=== PATIENT | male | born 1960 | race Caucasian/White ===

== ENCOUNTER → 2018-06-08 | Outpatient (CLI) | payer BC ==
--- NOTE | 2018-06-09 07:14 | MR ---
EXAMINATION TYPE: MR foot RT wo con DATE OF EXAM: 06/08/2018 COMPARISON: None HISTORY: Rt foot pain, mid foot lateral aspect x several months, no trauma Standard multiplanar, multisequence MRI departmental protocol Multiplanar, multisequence images of the right foot were acquired. FINDINGS: There is some mild soft tissue edema involving the dorsal aspect of the fourth and fifth me tatarsals. There is no evidence of a discrete mass. I see no fracture. There is no evidence of bone e harvinder. I see no bony destructive process. Flexor medial and lateral tendons of the foot appear intact. Ankle mortise is anatomic. The collateral ligaments are intact at the ankle. Plantar fascia appears normal. IMPRESSION: There is mild soft tissue edema on the lateral aspect of the forefoot of uncertain significance. No f racture seen. No significant joint fluid.
== END | disposition home or self-care (01) ==
LOC: RADMRIMAIN 19:53
PROVIDERS: ATTEND Physical Medicine & Rehabilitation
DX: M79.89 Other specified soft tissue disorders (principal); M79.671 Pain in right foot; G57.81 Other specified mononeuropathies of right lower limb

== ENCOUNTER 2019-10-07 18:57 | Emergency (ER) | payer BC ==
[2019-10-07 19:10] VITALS: BP 169/89; PULSE 72; RESP 18; TEMP 98.3
[2019-10-07] MEDS ORDERED: KETOROLAC 60 MG/2 ML VIAL IM STA (19:20)
--- NOTE | 2019-10-07 19:55 | ED ---
Fall HPI - General Chief Complaint: Fall Stated Complaint: Rib injury Time Seen by Provider: 10/07/19 19:15 Source: patient Mode of arrival: ambulatory - History of Present Illness Initial Comments: Patient is a 59-year-old male presenting to the emergency department after a fall. Patient states approximately noon today he was on a two-step, small stool when he fell off landing on his left side. Patient states his left arm was underneath his ribs and his main complaint is left-sided rib pain. Patient states he did not hit his head, no LOC. Patient states he was doing fine since the fall until a few hours ago when he sneezed and he is having significant pain in the left side of the ribs. He states increased pain with deep breathing. He denies any extremity injuries. He has no other complaints from the fall. - Related Data Allergies Allergy/AdvReac Type Severity Reaction Status Date / Time No Known Allergies Allergy Verified 10/07/19 19:10 Review of Systems ROS Statement: Those systems with pertinent positive or pertinent negative responses have been documented in the HPI. ROS Other: All systems not noted in ROS Statement are negative. Past Medical History Past Medical History: Hypertension History of Any Multi-Drug Resistant Organisms: None Reported Past Surgical History: Back Surgery, Joint Replacement Additional Past Surgical History / Comment(s): shoulder Past Psychological History: No Psychological Hx Reported Smoking Status: Former smoker Past Alcohol Use History: None Reported Past Drug Use History: Marijuana General Exam - General Exam Comments Initial Comments: GENERAL: Well-appearing, well-nourished and in no acute distress. HEAD: Atraumatic, normocephalic. EYES: Pupils equal round and reactive to light, extraocular movements intact, sclera anicteric, conjunctiva are normal. ENT: TMs normal, nares patent, oropharynx clear without exudates. Moist mucous membranes. NECK: Normal range of motion, supple without lymphadenopathy or JVD. LUNGS: Breath sounds clear to auscultation bilaterally and equal. No wheezes rales or rhonchi. Tender to palpation of the lateral aspect of the left side of ribs. No bruising seen. HEART: Regular rate and rhythm without murmurs, rubs or gallops. ABDOMEN: Soft, nontender, normoactive bowel sounds. No guarding, no rebound. No masses appreciated. : Deferred EXTREMITIES: Normal range of motion, no pitting or edema. No clubbing or cyanosis. NEUROLOGICAL: Cranial nerves II through XII grossly intact. Normal speech, normal gait. PSYCH: Normal mood, normal affect. SKIN: Warm, Dry, normal turgor, no rashes or lesions noted. Limitations: no limitations Course Vital Signs 10/07/19 19:07 Temperature 98.3 F Pulse Rate 72 Respiratory 18 Rate Blood Pressure 169/89 O2 Sat by Pulse 95 Oximetry Medical Decision Making - Medical Decision Making Patient 59-year-old male here for left-sided rib pain after falling off a small step stool ladder. He did not hit his head, no LOC. No other complaints of injuries from this fall other than the left-sided rib pain. X-rays reveal A mildly displaced left lateral sixth rib fracture. I discussed these findings with the patient. Patient was given Toradol as well as a tile 3 starter pack. I did offer patient lidocaine patches to wear however he declined these. Patient was given an incentive spirometer to use. Patient is stable for discharge. Return parameters were discussed with the patient and he verbalized understanding. Case discussed with Dr. Solano. Disposition Clinical Impression: Fall, Left rib fracture Disposition: HOME SELF-CARE Condition: Stable Instructions (If sedation given, give patient instructions): Rib Fracture (ED) Additional Instructions: Please return to the Emergency Department if symptoms worsen or any other concerns. Apply pressure using a pillow to the left ribs when having to bear down, cough, sneeze. Use an incentive spirometer as directed. Continue with Tylenol or Motrin for discomfort. Follow-up with PCP. Is patient prescribed a controlled substance at d/c from ED?: No Referrals: Shoaib Lan DO [Primary Care Provider] - 1-2 days
--- NOTE | 2019-10-07 20:02 | XR ---
PROCEDURE: XR ribs LT w pa chest xray - 3V DATE AND TIME: 10/07/2019 7:38 PM CLINICAL INDICATION: PHH; fall, pain TECHNIQUE: Department protocol COMPARISON: 05/16/2013 PA and lateral chest radiographs FINDINGS: LUNGS: There is a 9 cm transverse by 4.5 cm longitudinal ill-defined added opacity at the left lung b ase, with radiographic differential including basilar atelectasis/contusion, or pneumonia in the prop er clinical setting. PLEURAL SPACES: There is no pneumothorax or other abnormal gas collection. There is evidence of a subpulmonic left pleural effusion. SOFT TISSUES: The cardiac silhouette is mildly enlarged. The interface of the left hemidiaphragm with the left lower lung parenchyma is silhouetted. SKELETAL STRUCTURES: There is a mildl- displaced left sixth rib fracture. There is remodeling of the left eighth and ninth ribs posteriorly at the mid clavicular line, and the left T9 and T10 ribs later ally. Most of these are seen on the 05/16/2013 chest radiograph, consistent with remote injury. IMPRESSION: 1. Mildly displaced left lateral sixth rib fracture. 2. Lung base added opacity as discussed. 3. Left pleural effusion which appears subpulmonic. 4. Multifocal remodeled left ribs, consistent with remote injury.
[2019-10-07] MEDS ORDERED: ACET/COD 300 MG/30 MG STARTER PACK 6 TAB BTL PO STA (20:32)
== END 2019-10-07 20:53 | disposition home or self-care (01) ==
LOC: EC 18:57
DX: S22.32XA Fracture of one rib, left side, initial encounter for closed fracture (principal); Z87.891 Personal history of nicotine dependence; W19.XXXA Unspecified fall, initial encounter
CPT/HCPCS: 71101; 99283; 96372; J1885

== ENCOUNTER 2019-10-14 13:03 | Inpatient (IN) | payer BC ==
--- NOTE | 2019-10-14 13:33 | ED ---
General Adult HPI - General Chief complaint: Abdominal Pain Stated complaint: abdominal issues Time Seen by Provider: 10/14/19 13:05 Source: patient, RN notes reviewed, old records reviewed Mode of arrival: ambulatory Limitations: no limitations - History of Present Illness Initial comments: And the sensation that he was bloated. Patient states he has noticed she's been burping a lot more as well. Patient states she's had no nausea vomiting or diarrhea. Patient states he has not been constipated. Patient states he took approximate 7 pound with codeine since then hasn't taken any in a few days. Patient denies any fever chills per patient denies any new trauma. Patient denies any bruising or swelling in the left upper quadrant. Patient denies any chest pain difficult breathing shortness of breath. Patient denies any back pain. - Related Data Allergies Allergy/AdvReac Type Severity Reaction Status Date / Time No Known Allergies Allergy Verified 10/14/19 13:12 Review of Systems ROS Statement: Those systems with pertinent positive or pertinent negative responses have been documented in the HPI. ROS Other: All systems not noted in ROS Statement are negative. Past Medical History Past Medical History: Hypertension History of Any Multi-Drug Resistant Organisms: None Reported Past Surgical History: Back Surgery, Joint Replacement Additional Past Surgical History / Comment(s): shoulder Past Psychological History: No Psychological Hx Reported Smoking Status: Former smoker Past Alcohol Use History: None Reported Past Drug Use History: Marijuana General Exam - General Exam Comments Initial Comments: GENERAL: Patient is well-developed and well-nourished. Patient is nontoxic and well- hydrated and is in mild distress. ENT: Neck is soft and supple. No significant lymphadenopathy is noted. Oropharynx is clear. Moist mucous membranes. Neck has full range of motion without eliciting any pain. EYES: The sclera were anicteric and conjunctiva were pink and moist. Extraocular movements were intact and pupils were equal round and reactive to light. Eyelids were unremarkable. PULMONARY: Unlabored respirations. Good breath sounds bilaterally. No audible rales rhonchi or wheezing was noted. CARDIOVASCULAR: There is a regular rate and rhythm without any murmurs gallops or rubs. ABDOMEN: Patient has pain in the left upper quadrant is mild is no rebound SKIN: Skin is clear with no lesions or rashes and otherwise unremarkable. NEUROLOGIC: Patient is alert and oriented x3. Cranial nerves II through XII are grossly i ntact. Motor and sensory are also intact. Normal speech, volume and content. Symmetrical smile. MUSCULOSKELETAL: Normal extremities with adequate strength and full range of motion. No lower extremity swelling or edema. No calf tenderness. LYMPHATICS: No significant lymphadenopathy is noted PSYCHIATRIC: Normal psychiatric evaluation. Limitations: no limitations Course Vital Signs 10/14/19 13:10 Temperature 98.4 F Pulse Rate 91 Respiratory 16 Rate Blood Pressure 145/91 O2 Sat by Pulse 99 Oximetry Medical Decision Making - Medical Decision Making CT of the abdomen shows a large pleural effusion on the left side of his chest. Also social little bit of fluid in the pelvis but no source. Chest x-ray shows a large pleural effusion. I spoke with some physicians agreed to admit the patient admitted the patient wrote admitting orders. - Lab Data Result diagrams: 10/14/19 14:06 10/14/19 14:06 Lab Results 10/14/19 10/14/19 10/14/19 Range/Units 14:06 14:06 15:51 WBC 11.3 H (3.8-10.6) k/uL RBC 3.20 L (4.30-5.90) m/uL Hgb 10.6 L (13.0-17.5) gm/dL Hct 31.8 L (39.0-53.0) % MCV 99.4 (80.0-100.0) fL MCH 33.2 (25.0-35.0) pg MCHC 33.4 (31.0-37.0) g/dL RDW 13.0 (11.5-15.5) % Plt Count 733 H (150-450) k/uL Neutrophils % 72 % Lymphocytes % 18 % Monocytes % 5 % Eosinophils % 3 % Basophils % 0 % Neutrophils # 8.2 H (1.3-7.7) k/uL Lymphocytes # 2.0 (1.0-4.8) k/uL Monocytes # 0.6 (0-1.0) k/uL Eosinophils # 0.3 (0-0.7) k/uL Basophils # 0.0 (0-0.2) k/uL PT 10.5 (9.0-12.0) sec INR 1.0 (<1.2) APTT 26.3 (22.0-30.0) sec Sodium 133 L (137-145) mmol/L Potassium 4.7 (3.5-5.1) mmol/L Chloride 98 (98-107) mmol/L Carbon Dioxide 25 (22-30) mmol/L Anion Gap 10 mmol/L BUN 11 (9-20) mg/dL Creatinine 0.69 (0.66-1.25) mg/dL Est GFR (CKD-EPI)AfAm >90 (>60 ml/min/1.73 sqM) Est GFR (CKD-EPI)NonAf >90 (>60 ml/min/1.73 sqM) Glucose 99 (74-99) mg/dL Calcium 9.2 (8.4-10.2) mg/dL Total Bilirubin 1.4 H (0.2-1.3) mg/dL AST 27 (17-59) U/L ALT 19 (4-49) U/L Alkaline Phosphatase 58 (38-126) U/L Total Protein 6.9 (6.3-8.2) g/dL Albumin 4.2 (3.5-5.0) g/dL Disposition Clinical Impression: Pleural effusion, left, Rib fractures Disposition: ADMITTED IP TO THIS HOSP Referrals: Shoaib Lan DO [Primary Care Provider] - 1-2 days Time of Disposition: 16:25
[2019-10-14 14:32] LABS: Basophils % (A) 0 %; Eosinophils # (A) 0.3 k/uL (0-0.7); Eosinophils % (A) 3 %; HCT 31.8 % (39.0-53.0); HGB 10.6 gm/dL (13.0-17.5); Lymphocytes % (A) 18 %; MCH 33.2 pg (25.0-35.0); MCHC 33.4 g/dL (31.0-37.0); MCV 99.4 fL (80.0-100.0); Mean Platelet Volume 7.6; Monocytes # (A) 0.6 k/uL (0-1.0); Monocytes % (A) 5 %; Neutrophils # (A) 8.2 k/uL (1.3-7.7); Neutrophils % (A) 72 %; Platelet Count 733 k/uL (150-450); WBC 11.3 k/uL (3.8-10.6)
[2019-10-14 14:39] LABS: ALT 19 U/L (4-49); AST 27 U/L (17-59); African American GFR (CKD) >90 (>60 ml/min/1.73 sqM); Albumin 4.2 g/dL (3.5-5.0); Alkaline Phosphatase 58 U/L (38-126); Anion Gap 10 mmol/L; Blood Urea Nitrogen 11 mg/dL (9-20); Calcium 9.2 mg/dL (8.4-10.2); Carbon Dioxide 25 mmol/L (22-30); Chloride 98 mmol/L (98-107); Glucose 99 mg/dL (74-99); Non-African American GFR(CKD) >90 (>60 ml/min/1.73 sqM); Potassium 4.7 mmol/L (3.5-5.1); Sodium 133 mmol/L (137-145); Total Bilirubin 1.4 mg/dL (0.2-1.3); Total Protein 6.9 g/dL (6.3-8.2)
--- NOTE | 2019-10-14 15:40 | CT ---
EXAMINATION TYPE: CT abdomen pelvis w con DATE OF EXAM: 10/14/2019 COMPARISON: NONE HISTORY: 59-year-old male Left rib fracture one week ago. Left sided abdominal pain and gas today. TECHNIQUE: Contiguous axial scanning of the abdomen and pelvis following administration of 100 ml Iso reena 300 IV contrast. Delayed images through the kidneys and coronal/sagittal reconstructions perform ed. CT DLP: 1123.7 mGycm Automated exposure control for dose reduction was used. FINDINGS: Heart normal size without pericardial effusion. Partially visualized large left pleural effusion. Lexa e heterogeneous density inferior could represent hemorrhagic debris, axial image 3. Nondisplaced anterolateral left 10th rib fracture. Liver enlarged at 19.7 cm. Hypodense lesions measuring up to 1.6 cm suggestive of cysts. Portal venou s system is patent. No biliary ductal dilatation. Gallbladder, adrenal glands, right kidney, pancreas appear within normal limits. Spleen mildly enlarged at 14.5 cm with a couple hilar splenules. The left hemidiaphragm is depressed from the large left effusion. No dilated small bowel, free fluid, or free air. No mesenteric or retroperitoneal lymphadenopathy. Normal appendix. Mild stool burden. Mild circumferential bladder wall thickening. Prostate gland measures 5.1 cm wide with central calcif ications. No abnormal fluid collection the pelvis or pelvic lymphadenopathy. There seems to be some focal fluid just deep to the left inguinal ring measuring 2.5 cm. In addition, there is soft tissue swelling along the anterior upper left thigh. No underlying acute fracture. Moderate to advanced degenerative disc disease L5-S1. Facet arthropathy mid to lower lumbar spine. IMPRESSION: 1. NONDISPLACED ANTEROLATERAL LEFT SEVENTH RIB FRACTURE. THERE IS AN UNDERLYING PARTIALLY VISUALIZED LARGE LEFT PLEURAL EFFUSION. SOME HEMORRHAGIC DEBRIS MAY BE PRESENT IN THE EFFUSION. 2. THE EFFUSION HAS MASS EFFECT, DEPRESSING THE LEFT HEMIDIAPHRAGM. 3. SOFT TISSUE SWELLING, SUSPECTED BRUISING ALONG THE ANTERIOR UPPER LEFT THIGH. CORRELATE FOR ANY IN JURY HERE. 4. A 2.5 CM AREA OF FOCAL FLUID WITHIN THE LEFT SIDE OF THE PELVIS JUST BEHIND THE DEEP INGUINAL RING . POSSIBLY REACTIVE FLUID IF THERE WAS INJURY AT THE THIGH. THREE-MONTH FOLLOW-UP CAN REASSESS. 5. INCIDENTAL: MILD HEPATOSPLENOMEGALY (LIVER 19.7 CM AND SPLEEN 14.5 CM), MILD CIRCUMFERENTIAL BLADD ER WALL THICKENING; CORRELATE TO EXCLUDE CYSTITIS.
--- NOTE | 2019-10-14 15:59 | XR ---
EXAMINATION TYPE: XR chest 2V DATE OF EXAM: 10/14/2019 COMPARISON: 10/07/2019 TECHNIQUE: PA and lateral views submitted. HISTORY: Shortness of breath FINDINGS: There is increasing consolidation and pleural effusion on the left. Right lung clear. Postsurgical ch georgie right shoulder. No sizable pneumothorax. Patient with history of rib fracture with a displaced r ib fracture seen along the anterior lateral margin of the approximate right sixth rib. IMPRESSION: 1. Increasing consolidation and pleural effusion on the left. Consider hemothorax post trauma. 2. Displaced anterior lateral left sixth rib fracture.
[2019-10-14 16:07] LABS: Partial Thromboplastin Time 26.3 sec (22.0-30.0); Prothrombin Time 10.5 sec (9.0-12.0)
[2019-10-14] MEDS ORDERED: SODIUM CHLORIDE 0.9% 1,000 ML IV ONE (16:33)
[2019-10-14] MEDS ORDERED: NALOXONE 0.4 MG/ML 1 ML VIAL IV PRN (16:50)
--- NOTE | 2019-10-14 17:04 | P.HPIM ---
History of Present Illness H&P Date: 10/14/19 Chief Complaint: Bloating 59 y/o male with no signifcant past medical hx presented to the ER due to increasing abdominal bloating and belching. Has also been having left lower rib pain that is pleuritic. No nausea, vomiting or diarrhea, no constipation. He is having difficultly with breathing as well. Patient denies any fever, chills. He has some bruising in the left posterior chest. He did have a fall from two-step, small stool about a week ago. At that time he did not hit his head, no LOC. In the ER CXR revealed left large pleural effusion as well as 6th rib fracture on the left. Abdomen and pelvis CT showed 7th rib fracture on the left, large left pleural effusion with probable hemorrhage and debris. Labs and vital were all ok. He was admitted for further evaluation and management. Review of Systems Complete review of system performed, pertinent positives per HPI, otherwise negative Past Medical History Past Medical History: Hypertension History of Any Multi-Drug Resistant Organisms: None Reported Past Surgical History: Back Surgery, Joint Replacement Additional Past Surgical History / Comment(s): shoulder Past Psychological History: No Psychological Hx Reported Smoking Status: Former smoker Past Alcohol Use History: None Reported Past Drug Use History: Marijuana Medications and Allergies Home Medications Medication Instructions Recorded Confirmed Type No Known Home Medications 10/14/19 10/14/19 History Allergies Allergy/AdvReac Type Severity Reaction Status Date / Time No Known Allergies Allergy Verified 10/14/19 16:48 Physical Exam Vitals: Vital Signs Temp Pulse Resp BP Pulse Ox 10/14/19 13:10 98.4 F 91 16 145/91 99 Intake and Output 10/14/19 10/14/19 10/14/19 06:59 14:59 22:59 Other: Weight 90.718 kg Constitutional: No acute distress, conversant, pleasant Eyes:Anicteric sclerae, moist conjunctiva, no lid-lag, PERRLA, ENMT: Oropharynx clear, no erythema, exudates Neck: Supple, FROM, no masses, or JVD, No carotid bruits, No thyromegaly Lungs: Diminished breath sounds in the left base, Clear to auscultation, Clear to percussion, Normal respiratory effort, no accessory muscle use Cardiovascular: Heart regular in rate and rhythm, No murmurs, gallops, or rubs, No peripheral edema Abdominal: Soft, Nontender, no guarding, rebound or rigidity, Normoactive bowel sounds, No hepatomegaly, No splenomegaly, No palpable mass Skin: Normal temperature, tone, texture, turgor, no induration, No subcutaneous nodules, No rash, lesions, No ulcers Extremities: No digital cyanosis, No clubbing, Pedal pulses intact and symmetrical, Radial pulses intact and symmetrical, No calf tenderness Psychiatric: Alert and oriented to person, place and time, appropriate affect, intact judgement Neuro: Muscles Strength 5/5 in all 4 extremities, Sensation to light touch grossly present throughout, Cranial nerves II-XII grossly intact, no focal sensory deficits Results CBC & Chem 7: 10/14/19 14:06 10/14/19 14:06 Labs: Abnormal Lab Results - Last 24 Hours (Table) 10/14/19 10/14/19 Range/Units 14:06 14:06 WBC 11.3 H (3.8-10.6) k/uL RBC 3.20 L (4.30-5.90) m/uL Hgb 10.6 L (13.0-17.5) gm/dL Hct 31.8 L (39.0-53.0) % Plt Count 733 H (150-450) k/uL Neutrophils # 8.2 H (1.3-7.7) k/uL Sodium 133 L (137-145) mmol/L Total Bilirubin 1.4 H (0.2-1.3) mg/dL Assessment and Plan Plan: Left large pleural effusion likely hemorrhagic due to the recent fall Consult pulmonary and cardiothoracic surgery Percocet for pain IV fluids Likely require chest tube placement for drainage Shortness of breath and lower rib pain Symptomatic management Admitted to inpatient expected length of stay more than 2 midnights
[2019-10-14] MEDS: oxyCODONE-APAP 5-325MG 1 EACH TAB PO PRN ×2 (17:33→21:35)
[2019-10-15] MEDS: oxyCODONE-APAP 5-325MG 1 EACH TAB PO PRN ×3 (04:16→19:54)
[2019-10-15 06:15] LABS: Basophils # (A) 0.1 k/uL (0-0.2); Basophils % (A) 1 %; Eosinophils # (A) 0.3 k/uL (0-0.7); Eosinophils % (A) 3 %; HCT 29.4 % (39.0-53.0); HGB 9.3 gm/dL (13.0-17.5); Lymphocytes # (A) 1.2 k/uL (1.0-4.8); Lymphocytes % (A) 16 %; MCH 31.8 pg (25.0-35.0); MCHC 31.8 g/dL (31.0-37.0); MCV 99.9 fL (80.0-100.0); Monocytes # (A) 0.4 k/uL (0-1.0); Monocytes % (A) 5 %; Neutrophils # (A) 5.9 k/uL (1.3-7.7); Neutrophils % (A) 74 %; Platelet Count 527 k/uL (150-450); RBC 2.94 m/uL (4.30-5.90); RDW 13.3 % (11.5-15.5)
[2019-10-15 06:27] LABS: ALT 15 U/L (4-49); AST 18 U/L (17-59); African American GFR (CKD) >90 (>60 ml/min/1.73 sqM); Albumin 3.1 g/dL (3.5-5.0); Alkaline Phosphatase 47 U/L (38-126); Anion Gap 6 mmol/L; Blood Urea Nitrogen 10 mg/dL (9-20); Calcium 8.4 mg/dL (8.4-10.2); Carbon Dioxide 24 mmol/L (22-30); Chloride 102 mmol/L (98-107); Glucose 97 mg/dL (74-99); Magnesium 2.1 mg/dL (1.6-2.3); Non-African American GFR(CKD) >90 (>60 ml/min/1.73 sqM); Potassium 4.6 mmol/L (3.5-5.1); Sodium 132 mmol/L (137-145); Total Bilirubin 1.1 mg/dL (0.2-1.3); Total Protein 5.8 g/dL (6.3-8.2)
--- NOTE | 2019-10-15 08:08 | US ---
EXAMINATION TYPE: US chest DATE OF EXAM: 10/15/2019 COMPARISON: CXR CLINICAL HISTORY: Markings for thoracentesis by pulmonary staff. Effusion left TECHNIQUE: Targeted ultrasound of the posterior lower bilateral hemithoraces EXAM MEASUREMENTS: Right Pleural Effusion pocket size: 0 cm Left Pleural Effusion pocket size: 12.8 cm Left skin surface to fluid distance: 3.0 cm Right side NOT marked for possible thoracentesis outside the dept. Left side marked for possible thoracentesis outside the dept. Pulmonologists are able to review the images in the patient?s EMR. IMPRESSIONS: Left pleural effusion
--- NOTE | 2019-10-15 09:23 | P.GSCN ---
History of Present Illness Consult date: 10/15/19 Reason for Consult: left pleural effusion Requesting physician: Mallory Murray History of present illness: This is a 59-year-old active gentleman who sees Dr. Shoaib Lan on an outpatient basis for primary care.he has a previous medical history of hypertension, bilateral shoulder surgery, previous tobacco dependence, and occasional marijuana use. Apparently he fell at home approximately a week ago and was seen in the emergency room. A chest x-ray was completed demonstrating broken ribs, however he was stable and sent home with pain control. States that he felt better for a few days and then begin to have increasing abdominal pain and belching. He called his family physician told him to report to the emergency room. He presented to [facility] emergency room yesterday for evaluation and treatment. Chest x-ray demonstrated large left-sided pleural effusion with sixth rib fracture. CT of the abdomen and pelvis demonstrated seventh rib fracture on the left, large left pleural effusion, probable hemorrhage.hemoglobin was 10.6, platelet count 733, total bilirubin 1.4, all other labs unremarkable.he was admitted for evaluation and treatment with consultation placed to pulmonology and Dr. Joshi from cardiothoracic service. Review of Systems review of systems was completed and was negative except as noted in the HPI Past Medical History Past Medical History: Hypertension History of Any Multi-Drug Resistant Organisms: None Reported Past Surgical History: Back Surgery, Joint Replacement Additional Past Surgical History / Comment(s): shoulder Past Anesthesia/Blood Transfusion Reactions: No Reported Reaction Past Psychological History: No Psychological Hx Reported Smoking Status: Former smoker Past Alcohol Use History: None Reported Past Drug Use History: Marijuana - Past Family History Father Family Medical History: No Reported History Mother Family Medical History: No Reported History Medications and Allergies Home Medications Medication Instructions Recorded Confirmed Type No Known Home Medications 10/14/19 10/14/19 History Allergies Allergy/AdvReac Type Severity Reaction Status Date / Time No Known Allergies Allergy Verified 10/14/19 16:48 Surgical - Exam Vital Signs Temp Pulse Resp BP Pulse Ox 98.4 F 91 16 145/91 99 10/14/19 13:10 10/14/19 13:10 10/14/19 13:10 10/14/19 13:10 10/14/19 13:10 - General well developed, well nourished, no distress, no pain - Eyes PERRL, normal ocular movement - ENT no hearing loss - Neck no masses, no bruits, trachea midline - Respiratory lungs sounds diminished bilaterally, left greater than right. Respirations even, nonlabored. Currently on 2 L nasal cannula with oxygen saturation 100%. - Cardiovascular S1, S2 present. Regular rate and rhythm, sinus rhythm on telemetry with heart rate 67 bpm. Palpable peripheral pulses bilaterally. No edema present. - Abdomen Abdomen: soft, non tender, bowel sounds - Genitourinary deferred - Rectum deferred - Integumentary no rash, no growths - Neurologic normal coordination, normal sensation - Musculoskeletal normal gait, normal posture - Psychiatric oriented to time, oriented to person, oriented to place, speech is normal, memory intact Results - Labs 10/15/19 05:52 10/15/19 05:52 Abnormal Lab Results - Last 24 Hours (Table) 10/14/19 10/14/19 10/15/19 Range/Units 14:06 14:06 05:52 WBC 11.3 H (3.8-10.6) k/uL RBC 3.20 L 2.94 L (4.30-5.90) m/uL Hgb 10.6 L 9.3 L (13.0-17.5) gm/dL Hct 31.8 L 29.4 L (39.0-53.0) % Plt Count 733 H 527 H (150-450) k/uL Neutrophils # 8.2 H (1.3-7.7) k/uL Sodium 133 L (137-145) mmol/L Total Bilirubin 1.4 H (0.2-1.3) mg/dL Total Protein (6.3-8.2) g/dL Albumin (3.5-5.0) g/dL 10/15/19 Range/Units 05:52 WBC (3.8-10.6) k/uL RBC (4.30-5.90) m/uL Hgb (13.0-17.5) gm/dL Hct (39.0-53.0) % Plt Count (150-450) k/uL Neutrophils # (1.3-7.7) k/uL Sodium 132 L (137-145) mmol/L Total Bilirubin (0.2-1.3) mg/dL Total Protein 5.8 L (6.3-8.2) g/dL Albumin 3.1 L (3.5-5.0) g/dL Diabetes panel 10/14/19 10/15/19 Range/Units 14:06 05:52 Sodium 133 L 132 L (137-145) mmol/L Potassium 4.7 4.6 (3.5-5.1) mmol/L Chloride 98 102 (98-107) mmol/L Carbon Dioxide 25 24 (22-30) mmol/L BUN 11 10 (9-20) mg/dL Creatinine 0.69 0.71 (0.66-1.25) mg/dL Glucose 99 97 (74-99) mg/dL Calcium 9.2 8.4 (8.4-10.2) mg/dL AST 27 18 (17-59) U/L ALT 19 15 (4-49) U/L Alkaline Phosphatase 58 47 (38-126) U/L Total Protein 6.9 5.8 L (6.3-8.2) g/dL Albumin 4.2 3.1 L (3.5-5.0) g/dL Calcium panel 10/14/19 10/15/19 Range/Units 14:06 05:52 Calcium 9.2 8.4 (8.4-10.2) mg/dL Albumin 4.2 3.1 L (3.5-5.0) g/dL Pituitary panel 10/14/19 10/15/19 Range/Units 14:06 05:52 Sodium 133 L 132 L (137-145) mmol/L Potassium 4.7 4.6 (3.5-5.1) mmol/L Chloride 98 102 (98-107) mmol/L Carbon Dioxide 25 24 (22-30) mmol/L BUN 11 10 (9-20) mg/dL Creatinine 0.69 0.71 (0.66-1.25) mg/dL Glucose 99 97 (74-99) mg/dL Calcium 9.2 8.4 (8.4-10.2) mg/dL Adrenal panel 10/14/19 10/15/19 Range/Units 14:06 05:52 Sodium 133 L 132 L (137-145) mmol/L Potassium 4.7 4.6 (3.5-5.1) mmol/L Chloride 98 102 (98-107) mmol/L Carbon Dioxide 25 24 (22-30) mmol/L BUN 11 10 (9-20) mg/dL Creatinine 0.69 0.71 (0.66-1.25) mg/dL Glucose 99 97 (74-99) mg/dL Calcium 9.2 8.4 (8.4-10.2) mg/dL Total Bilirubin 1.4 H 1.1 (0.2-1.3) mg/dL AST 27 18 (17-59) U/L ALT 19 15 (4-49) U/L Alkaline Phosphatase 58 47 (38-126) U/L Total Protein 6.9 5.8 L (6.3-8.2) g/dL Albumin 4.2 3.1 L (3.5-5.0) g/dL - Imaging Chest x-ray: report reviewed, image reviewed CT scan - abdomen: report reviewed, image reviewed CT scan - pelvis: report reviewed, image reviewed Assessment and Plan Assessment: 1. Large left-sided pleural effusion, likely hemothorax 2. History of hypertension, currently on no medication 3. Previous tobacco dependence Plan: The patient was seen and examined at the bedside with Dr. Joshi. Chart/diagnostics were reviewed. At this time our recommendation is for left- sided video-assisted thoracoscopy with chest tube placement for drainage. This was discussed with the patient and he is in agreement. He is currently nothing by mouth and will go to the OR this afternoon with Dr. Joshi. Continue with pain control per order medication. Medical management of other comorbidities per primary care service. More recommendations to follow. Thank you Dr. Murray for this consult. We look forward to working with you in the care of your patient. Time with Patient: Greater than 30
--- NOTE | 2019-10-15 11:48 | P.CNPUL ---
History of Present Illness Consult date: 10/15/19 Requesting physician: Mallory Murray Reason for consult: dyspnea, abnormal CXR/CT Chief complaint: Abdominal pain, bloating History of present illness: This is a very pleasant 59-year-old gentleman who follows with a primary care physician out of [place]. He has a history of hypertension and hyperlipidemia. He had recently taken a fall from a stepladder onto his left side with his left arm hitting underneath his left chest. He was seen here in the emergency room on 10/07/2019. Chest x-ray revealed a mildly displaced left lateral sixth rib fracture. The patient was given Toradol and pain medications for home. He was also given an incentive spirometer. He was doing fairly well until yesterday he had re-presented to the emergency room with abdominal fullness and bloating and belching. No nausea, vomiting or diarrhea. A computed tomography scan of the abdomen revealed a nondisplaced anterior lateral left seventh rib fracture. There is underlying partially visualized large left pleural effusion. Some hemorrhagic debris may be present in the effusion. The effusion has a mass effect depressing left hemidiaphragm. Ultrasound of the chest revealed a 12.8 cm pocket. We are consulted for the same. The patient is seen on the selective care unit currently resting fairly comfortably in bed. Awake and alert in no acute distress. He is maintaining good O2 saturations in the high 90s on room air. He's been afebrile. Hemodynamically stable. White count 8.0. Hemoglobin 9.3. INR 1.0. Sodium 132. Potassium 4.6. Creatinine 0.71. Arevalo virus not detected. His pain is adequately controlled. He is working well with the incentive spirometer. Review of Systems REVIEW OF SYSTEMS: CONSTITUTIONAL: Denies any recent significant weight loss or weight gain. EYES: Denies change in vision. EARS, NOSE, MOUTH, THROAT: Denies headaches, denies sore throat. CARDIOVASCULAR: Left-sided chest pain, no palpitations or syncopal episodes. RESPIRATORY: Denies shortness of breath, cough, congestion or hemoptysis. GASTROINTESTINAL: Abdominal discomfort and bloating. Denies change in appetite, denies abdominal pain GENITOURINARY: Denies hematuria, denies infections. MUSKULOSKELETAL: Denies pain, denies swelling. INTEGUMENTARY: Denies rash, denies eczema. NEUROLOGICAL: Denies recent memory loss, no recent seizure activity. PSYCHIATRIC: Denies anxiety, denies depression. HEMATOLOGIC/LYMPHATIC: Denies anemia, denies enlarged lymph nodes. Past Medical History Past Medical History: Hyperlipidemia, Hypertension History of Any Multi-Drug Resistant Organisms: None Reported Past Surgical History: Back Surgery, Joint Replacement Additional Past Surgical History / Comment(s): shoulder Past Anesthesia/Blood Transfusion Reactions: No Reported Reaction Past Psychological History: No Psychological Hx Reported Smoking Status: Former smoker Past Alcohol Use History: None Reported Past Drug Use History: Marijuana - Past Family History Father Family Medical History: No Reported History Mother Family Medical History: No Reported History Medications and Allergies Home Medications Medication Instructions Recorded Confirmed Type No Known Home Medications 10/14/19 10/14/19 History Allergies Allergy/AdvReac Type Severity Reaction Status Date / Time No Known Allergies Allergy Verified 10/14/19 16:48 Physical Exam Vitals: Vital Signs Temp Pulse Pulse Resp BP BP Pulse Ox 10/15/19 08:05 71 18 129/82 100 10/15/19 04:00 79 16 173/94 99 10/14/19 23:47 82 16 128/74 94 L 10/14/19 20:00 97.4 F L 80 16 136/80 97 10/14/19 19:01 97.4 F L 79 18 162/90 99 10/14/19 17:12 98.0 F 78 18 140/99 99 10/14/19 13:10 98.4 F 91 16 145/91 99 Intake and Output 10/14/19 10/15/19 10/15/19 22:59 06:59 14:59 Intake Total 375 Balance 375 Intake: Intake, IV Titration 375 Amount Sodium Chloride 0.9% 1, 375 000 ml @ 75 mls/hr IV . [id number] ONE Rx#:[id number] Other: # Voids 1 1 Weight 90.718 kg 91.8 kg GENERAL EXAM: Alert, pleasant 59-year-old gentleman, on room air, comfortable in no apparent distress. HEAD: Normocephalic. EYES: Normal reaction of pupils, equal size. NOSE: Clear with pink turbinates. THROAT: No erythema or exudates. NECK: No masses, no JVD. CHEST: No chest wall deformity. LUNGS: Crackles and diminished breath sounds on the left. Right lung clear CVS: S1 and S2 normal with no audible murmur, regular rhythm. ABDOMEN: No hepatosplenomegaly, normal bowel sounds, no guarding or rigidity. SPINE: No scoliosis or deformity SKIN: No rashes CENTRAL NERVOUS SYSTEM: No focal deficits, tone is normal in all 4 extremities. EXTREMITIES: There is no peripheral edema. No clubbing, no cyanosis. Peripheral pulses are intact. Results - Laboratory Findings CBC and BMP: 10/15/19 05:52 10/15/19 05:52 PT/INR, D-dimer PT 10.5 sec (9.0-12.0) 10/14/19 15:51 INR 1.0 (<1.2) 10/14/19 15:51 Abnormal lab findings: Abnormal Labs 10/14/19 10/14/19 10/15/19 14:06 14:06 05:52 WBC 11.3 H RBC 3.20 L 2.94 L Hgb 10.6 L 9.3 L Hct 31.8 L 29.4 L Plt Count 733 H 527 H Neutrophils # 8.2 H Sodium 133 L Total Bilirubin 1.4 H Total Protein Albumin 10/15/19 05:52 WBC RBC Hgb Hct Plt Count Neutrophils # Sodium 132 L Total Bilirubin Total Protein 5.8 L Albumin 3.1 L - Diagnostic Findings Chest x-ray: image reviewed Assessment and Plan Assessment: 1 Large left pleural effusion with hemorrhagic debris and anterior lateral left seventh rib fracture, nondisplaced secondary to trauma following a fall on 10/07/2019 2 Abdominal discomfort and bloating possibly secondary to trauma and narcotic use 3 Mild hepatosplenomegaly 4 2.5 cm area of focal fluid within the left side of the pelvis just behind the deep inguinal ring possibly reactive secondary to injury 5 History of hypertension 6 History of hyperlipidemia 7 History of chronic tobacco dependence however quit in May 2019 8 Occasional marijuana use Plan: The patient was seen and evaluated by Dr. Nunes Chest x-ray, CAT scan and ultrasound reviewed He did speak with cardiothoracic surgery The plan is for left-sided VATS procedure with chest tube placement versus thoracentesis based on the hemorrhagic debris Procedure planned for today Patient is educated regarding the use the incentive spirometer We will continue to follow and make further recommendations based on his clinical status I, the cosigning physician, performed a history & physical examination of the patient. Lungs sounds with crackles and diminished in the left lung, right lung clear. Maintaining good O2 saturations in the 90s on room air. I discussed the assessment and plan of care with my nurse practitioner, Shobha Ya. I attest to the above consultation as dictated by her. Time with Patient: Greater than 30
[2019-10-15] MEDS: LACTATED RINGERS 1,000 ML IV ONE ×2 (13:43→16:48)
[2019-10-15] MEDS ORDERED: DEXAMETHASONE SOD PHOSPHATE 10 MG/ML 1 ML VIAL IV ONE (13:46)
[2019-10-15] MEDS ORDERED: ONDANSETRON 4 MG/2 ML VIAL IVP ONE (13:46)
[2019-10-15] MEDS ORDERED: LIDOCAINE 1% INJ 10MG/ML (20 ML MDV) ONE (14:06)
[2019-10-15] MEDS ORDERED: PROPOFOL 10 MG/ML 20 ML VIAL IV ONE (14:06)
[2019-10-15] MEDS ORDERED: PHENYLEPHRINE-0.9% NACL SYG 1 MG/10 ML SYRINGE ONE (14:06)
[2019-10-15] MEDS ORDERED: GLYCOPYRROLATE 0.2 MG/ML 2 ML VIAL ONE (14:06)
[2019-10-15] MEDS ORDERED: SUCCINYLCHOLINE CHLORIDE VIAL 200 MG/10 ML VIAL IV ONE (14:06)
[2019-10-15] MEDS ORDERED: ROCURONIUM BROMIDE 10 MG/ML 5 ML VIAL IV ONE (14:06)
[2019-10-15] MEDS ORDERED: MIDAZOLAM 2 MG/2 ML VIAL ONE (14:06)
[2019-10-15] MEDS ORDERED: NEOSTIGMINE 1 MG/ML 10 ML VIAL ONE (14:06)
[2019-10-15] MEDS ORDERED: fentaNYL (PF) 50 MCG/ML 2 ML AMP ONE (14:06)
[2019-10-15] MEDS ORDERED: ONDANSETRON 4 MG/2 ML VIAL ONE (14:06)
[2019-10-15] MEDS ORDERED: LACTATED RINGERS 1,000 ML IV ONE ×2 (14:11→14:52)
[2019-10-15] MEDS ORDERED: BUPIVACAINE (PF) 0.5% 30 ML VIAL SQ ONE (14:11)
--- NOTE | 2019-10-15 14:18 | P.PN ---
Subjective Progress Note Date: 10/15/19 This is a 59-year-old male with no significant past medical history who presented to the ER chest discomfort after sustaining a fall from a 2 steps stool at home approximately a week ago. Patient was evaluated in the ER and admitted to the hospital for further management of his medical problems noted be low. 1. Fracture of the 6 and 7 rib on the left 2. Large pleural effusion with hemorrhagic debris, most likely secondary to trauma. Thoracic surgery consult with awaiting evaluation. 3. DVT prophylaxis with SCD We will continue pain control. Also chest tube placement today in OR. Repeat lab work in the morning. Objective - Vital Signs Vital signs: Vital Signs Temp 97.4 F L 10/15/19 13:33 Pulse 72 10/15/19 13:33 Resp 18 10/15/19 13:33 BP 143/86 10/15/19 13:33 Pulse Ox 100 10/15/19 13:33 Intake & Output 10/14/19 10/15/19 10/15/19 18:59 06:59 18:59 Intake Total 375 700 Balance 375 700 Weight 90.718 kg 91.8 kg Intake: IV 700 Intake, IV Titration 375 Amount Sodium Chloride 0.9% 1, 375 000 ml @ 75 mls/hr IV . [id number] ONE Rx#:[id number] Other: # Voids 1 1 - Labs CBC & Chem 7: 10/15/19 05:52 10/15/19 05:52 Labs: Abnormal Lab Results - Last 24 Hours (Table) 10/14/19 10/14/19 10/15/19 Range/Units 14:06 14:06 05:52 WBC 11.3 H (3.8-10.6) k/uL RBC 3.20 L 2.94 L (4.30-5.90) m/uL Hgb 10.6 L 9.3 L (13.0-17.5) gm/dL Hct 31.8 L 29.4 L (39.0-53.0) % Plt Count 733 H 527 H (150-450) k/uL Neutrophils # 8.2 H (1.3-7.7) k/uL Sodium 133 L (137-145) mmol/L Total Bilirubin 1.4 H (0.2-1.3) mg/dL Total Protein (6.3-8.2) g/dL Albumin (3.5-5.0) g/dL 10/15/19 Range/Units 05:52 WBC (3.8-10.6) k/uL RBC (4.30-5.90) m/uL Hgb (13.0-17.5) gm/dL Hct (39.0-53.0) % Plt Count (150-450) k/uL Neutrophils # (1.3-7.7) k/uL Sodium 132 L (137-145) mmol/L Total Bilirubin (0.2-1.3) mg/dL Total Protein 5.8 L (6.3-8.2) g/dL Albumin 3.1 L (3.5-5.0) g/dL
[2019-10-15] MEDS ORDERED: ceFAZolin 1,000 MG VIAL IVPB ONE (14:34)
[2019-10-15] MEDS: HYDROmorphone 1 MG/ML 1 ML SYRINGE IVP ONE ×4 (15:14→15:44)
--- NOTE | 2019-10-15 15:21 | P.OP ---
Date of Procedure: 10/15/19 Preoperative Diagnosis: Left hemothorax Postoperative Diagnosis: Same Procedure(s) Performed: Left thoracoscopy with evacuation of hemothorax Anesthesia: MARILYN Surgeon: Reed Joshi Estimated Blood Loss (ml): 5 IV fluids (ml): 900 Pathology: other (Pleural hemothorax) Condition: stable Disposition: PACU Indications for Procedure: 59-year-old male who fell from a ladder week ago landing on his left side and fractioning entering his left ribs presents with shortness of breath. Chest x- ray demonstrated a large hemothorax on the left. Thoracoscopy was indicated for clearance of the left pleural space. Operative Findings: There was a large hemothorax with over 4 L of bloody fluid present in the pleural space and a fair amount of organized thrombus as well this is partially coating the left lower lobe completely. We were able to completely evacuate the hemothorax and get excellent reexpansion of the lung. Description of Procedure: The patient was brought to the operating room, placed supine on the operating table, anesthetized and intubated with a double-lumen endotracheal tube. Endotracheal tube was positioned with fiberoptic bronchoscopy and secured. The patient was turned in the right lateral decubitus position the left chest sterilely prepped and draped. 2 once an inch incisions were made in the anterior axillary line in the lower chest. There are carried down into the pleural space. Video thoracoscope was placed. There was a large amount of fluid present and this was suctioned free. There was a large amount of clot present and this was removed with ring forceps. There was clot covering a portion of the lower lobe of the lung and this was freed to allow expansion of the lower lobe of the lung. Once we had all the fluid and clot evacuated we irrigated the chest with a liter of warm saline ensuring complete evacuation of all the blood and blood clot and completely clearing the pleural space. A 32- Honduran chest tube was placed through separate stab incision and positioned posterior apically. Was secured with an 0 Ethibond suture. At the completion of the procedure the suction canisters contained 5.9 L of fluid which included a liter of irrigation. There was over 100 mL of clot which had been formally removed using the ring forceps. The lung was reexpanded under thoracoscopic visualization. Rib blocks were performed at the level of the incisions with half percent Marcaine. The incisions were closed with layers of Vicryl suture. Dry sterile dressings were applied. Chest tube was connected to a Pleur-evac. Patient was turned supine and extubated and transferred to recovery in stable condition.
[2019-10-15] MEDS: KETOROLAC 30 MG/ML 1 ML VIAL IVP PRN ×2 (15:23→23:45)
--- NOTE | 2019-10-15 17:27 | XR ---
EXAMINATION TYPE: XR chest 1V portable DATE OF EXAM: 10/15/2019 COMPARISON: 10/14/2019 HISTORY: Short of breath. Postop. TECHNIQUE: Single view FINDINGS: There is left-sided chest tube. There is some airspace consolidation and pleural thickening and left lower lobe. Right lung is clear. Trachea is midline. There is no pneumothorax. There is rig ht shoulder prosthesis. IMPRESSION: Left chest tube in good position. There is improved aeration of the left lung with decrea sed pleural fluid compared to yesterday.
--- NOTE | 2019-10-16 06:31 | XR ---
EXAMINATION TYPE: XR chest 1V portable DATE OF EXAM: 10/16/2019 HISTORY: post vats. REFERENCE: Previous study dated 10/15/2019. FINDINGS: There is a right shoulder arthroplasty in place. A left pleural drain is in place. There is improved aeration at the left lung base. The right lung remains clear. Heart size upper limi ts of normal. I suspect a small left effusion. IMPRESSION: IMPROVED AERATION, LEFT LUNG BASE.
--- NOTE | 2019-10-16 08:59 | P.PN ---
Subjective Progress Note Date: 10/16/19 Principal diagnosis: Left hemothorax. Previous medical history of recent fall with left sixth and seventh rib fractures, hypertension, tobacco dependence with cessation in May 2019, and occasional marijuana use POD #1 left thoracoscopy with evacuation of hemothorax The patient's currently sitting up in a recliner in no acute distress on the cardiac stepdown unit eating breakfast. States pain is well controlled on current medication regimen, denies shortness of breath. States he feels much better after surgery yesterday. He is currently on room air. Left pleural c hest tube present. Patient has been ambulatory around the room. No new concerns. Objective - Vital Signs Vital signs: Vital Signs Temp 98.3 F 10/16/19 04:00 Pulse 62 10/16/19 04:00 Resp 16 10/16/19 04:00 BP 119/73 10/16/19 04:00 Pulse Ox 98 10/16/19 04:00 Intake & Output 10/15/19 10/16/19 10/16/19 18:59 06:59 18:59 Intake Total 1200 Output Total 1650 550 Balance -450 -550 Weight 92.5 kg Intake: IV 1200 Output: Chest Tube Drainage 250 100 Chest Tube Left Lateral 250 100 Chest Urine 400 450 Estimated Blood Loss 1000 - Constitutional General appearance: Present: cooperative, no acute distress - Respiratory Details: Lungs sounds diminished bilaterally. Respirations even, nonlabored. Currently on room air with oxygen saturation 98%. Able to achieve 2750 mL on his incentive spirometry. Strong cough. Left pleural chest tube present continuous wall suction, 70 mL thin serosanguineous drainage overnight, 400 mL since surgery, no air leak present. - Cardiovascular Details: S1, S2 present. Regular rate and rhythm, sinus rhythm on telemetry with heart rate 62 bpm. Palpable peripheral pulses bilaterally. No edema present. - Gastrointestinal Gastrointestinal Comment(s): Abdomen soft, nontender, nondistended. Active bowel sounds present 4 quadrants. Tolerating diet. - Genitourinary Genitourinary Comment(s): Continues to void - Integumentary Integumentary Comment(s): Skin is warm and dry with evidence of good perfusion - Neurologic Neurologic: Present: CNII-XII intact - Musculoskeletal Musculoskeletal: Present: gait normal, strength equal bilaterally - Psychiatric Psychiatric: Present: A&O x's 3, appropriate affect, intact judgment & insight - Allied health notes Allied health notes reviewed: nursing - Labs CBC & Chem 7: 10/15/19 05:52 10/16/19 08:52 - Imaging and Cardiology Chest x-ray: report reviewed, image reviewed Assessment and Plan Assessment: 1. Left-sided hemothorax, status post left thoracoscopy with evacuation of hemothorax 2. Recent fall history with sixth and seventh rib fractures 3. History of hypertension, currently on no medication 4. Previous tobacco dependence 5. Occasional marijuana use Plan: 1. Will discontinue left pleural chest tube 2. Encourage incentive spirometry use 10 times every hour while awake 3. Pain control with current medication regimen 4. Will repeat chest x-ray in the morning 5. Increase activity, ambulate as tolerated. May take off suction for short time to ambulate 6. Medical management of other comorbidities per primary care service 7. More recommendations to follow Time with Patient: Greater than 30
[2019-10-16 09:24] LABS: African American GFR (CKD) >90 (>60 ml/min/1.73 sqM); Anion Gap 7 mmol/L; Blood Urea Nitrogen 11 mg/dL (9-20); Calcium 8.7 mg/dL (8.4-10.2); Carbon Dioxide 25 mmol/L (22-30); Chloride 98 mmol/L (98-107); Glucose 209 mg/dL (74-99); Non-African American GFR(CKD) >90 (>60 ml/min/1.73 sqM); Potassium 4.5 mmol/L (3.5-5.1); Sodium 130 mmol/L (137-145)
[2019-10-16 09:39] LABS: Basophils % (A) 0 %; Eosinophils # (A) 0.1 k/uL (0-0.7); Eosinophils % (A) 1 %; HCT 31.4 % (39.0-53.0); HGB 10.4 gm/dL (13.0-17.5); Hypochromasia Slight; Lymphocytes # (A) 1.5 k/uL (1.0-4.8); Lymphocytes % (A) 15 %; MCH 33.5 pg (25.0-35.0); MCHC 33.1 g/dL (31.0-37.0); Macrocytosis Slight; Mean Platelet Volume 7.8; Monocytes # (A) 0.2 k/uL (0-1.0); Monocytes % (A) 2 %; Neutrophils # (A) 8.1 k/uL (1.3-7.7); Neutrophils % (A) 81 %; Platelet Count 644 k/uL (150-450); RDW 13.2 % (11.5-15.5)
--- NOTE | 2019-10-16 11:12 | P.PN ---
Subjective Progress Note Date: 10/16/19 Principal diagnosis: Left-sided hemothorax secondary to follow with repeat fracture This is a very pleasant 59-year-old gentleman who follows with a primary care physician out of [place]. He has a history of hypertension and hyperlipidemia. He had recently taken a fall from a stepladder onto his left side with his left arm hitting underneath his left chest. He was seen here in the emergency room on 10/07/2019. Chest x-ray revealed a mildly displaced left lateral sixth rib f racture. The patient was given Toradol and pain medications for home. He was also given an incentive spirometer. He was doing fairly well until yesterday he had re-presented to the emergency room with abdominal fullness and bloating and belching. No nausea, vomiting or diarrhea. A computed tomography scan of the abdomen revealed a nondisplaced anterior lateral left seventh rib fracture. There is underlying partially visualized large left pleural effusion. Some hemorrhagic debris may be present in the effusion. The effusion has a mass effect depressing left hemidiaphragm. Ultrasound of the chest revealed a 12.8 cm pocket. We are consulted for the same. The patient is seen on the selective care unit currently resting fairly comfortably in bed. Awake and alert in no acute distress. He is maintaining good O2 saturations in the high 90s on room air. He's been afebrile. Hemodynamically stable. White count 8.0. Hemoglobin 9.3. INR 1.0. Sodium 132. Potassium 4.6. Creatinine 0.71. Arevalo virus not detected. His pain is adequately controlled. He is working well with the incentive spirometer. The patient is seen today 10/16/2019 in follow-up on the selective care unit. He is currently sitting up in a chair at the bedside. Awake and alert in no acute distress. He did undergo a left thoracoscopic with evacuation of hemothorax and chest tube placement yesterday. There was over 4 L of bloody fluid present in the pleural space along with organized thrombus that was evacuated with excellent reexpansion of the lung. Today's chest x-ray shows improved aeration of the left lung base. He is maintaining good O2 saturations in the 90s on room air. He has been afebrile. Hemodynamically stable. White count 10.0. Hemoglobin 10.4. Sodium 130. Potassium 4.5. Creatinine 0.84. He is working well with the incentive spirometer. Objective - Vital Signs Vital signs: Vital Signs Temp 98.1 F 10/16/19 08:00 Pulse 91 10/16/19 08:00 Resp 16 10/16/19 08:00 BP 155/81 10/16/19 08:00 Pulse Ox 96 10/16/19 08:00 Intake & Output 10/15/19 10/16/19 10/16/19 18:59 06:59 18:59 Intake Total 1200 240 Output Total 1650 550 Balance -450 -550 240 Weight 92.5 kg Intake: IV 1200 Oral 240 Output: Chest Tube Drainage 250 100 Chest Tube Left Lateral 250 100 Chest Urine 400 450 Estimated Blood Loss 1000 - Exam GENERAL EXAM: Alert, pleasant 59-year-old gentleman, on room air, comfortable in no apparent distress. HEAD: Normocephalic. EYES: Normal reaction of pupils, equal size. NOSE: Clear with pink turbinates. THROAT: No erythema or exudates. NECK: No masses, no JVD. CHEST: No chest wall deformity. Left sided chest tube remains in place LUNGS: Crackles and diminished breath sounds on the left. Right lung clear CVS: S1 and S2 normal with no audible murmur, regular rhythm. ABDOMEN: No hepatosplenomegaly, normal bowel sounds, no guarding or rigidity. SPINE: No scoliosis or deformity SKIN: No rashes CENTRAL NERVOUS SYSTEM: No focal deficits, tone is normal in all 4 extremities. EXTREMITIES: There is no peripheral edema. No clubbing, no cyanosis. Peripheral pulses are intact. - Labs CBC & Chem 7: 10/16/19 08:52 10/16/19 08:52 Labs: Abnormal Lab Results - Last 24 Hours (Table) 10/16/19 10/16/19 Range/Units 08:52 08:52 RBC 3.10 L (4.30-5.90) m/uL Hgb 10.4 L (13.0-17.5) gm/dL Hct 31.4 L (39.0-53.0) % MCV 101.0 H (80.0-100.0) fL Plt Count 644 H (150-450) k/uL Neutrophils # 8.1 H (1.3-7.7) k/uL Sodium 130 L (137-145) mmol/L Glucose 209 H (74-99) mg/dL Assessment and Plan Assessment: 1 Large left pleural effusion with hemorrhagic debris and anterior lateral left seventh rib fracture, nondisplaced secondary to trauma following a fall on 10/07/2019. Status post left thoracoscopic with evacuation of fluid and left- sided chest tube placement. Postoperative day #1. 2 Abdominal discomfort and bloating possibly secondary to trauma and narcotic use 3 Mild hepatosplenomegaly 4 2.5 cm area of focal fluid within the left side of the pelvis just behind the deep inguinal ring possibly reactive secondary to injury 5 History of hypertension 6 History of hyperlipidemia 7 History of chronic tobacco dependence however quit in May 2019 8 Occasional marijuana use Plan: The patient was seen and evaluated by Dr. Nunes Chest x-ray reviewed, near complete resolution of left hemothorax On room air Continue the use of the incentive spirometer We will continue to follow and make further recommendations based on his clinical status I, the cosigning physician, performed a history & physical examination of the patient. Lungs sounds with crackles and diminished in the left lung, right lung clear. Maintaining good O2 saturations in the 90s on room air. I discussed the assessment and plan of care with my nurse practitioner, Shobha Ya. I attest to the above consultation as dictated by her.
--- NOTE | 2019-10-16 13:10 | P.PN ---
Subjective Patient is doing well today. Chest tube removed this morning. He denies any shortness of breath. Objective - Vital Signs Vital signs: Vital Signs Temp 97.9 F 10/16/19 12:42 Pulse 80 10/16/19 12:42 Resp 17 10/16/19 12:42 BP 142/81 10/16/19 12:42 Pulse Ox 98 10/16/19 12:42 Intake & Output 10/15/19 10/16/19 10/16/19 18:59 06:59 18:59 Intake Total 1200 240 Output Total 1650 550 450 Balance -450 -550 -210 Weight 92.5 kg Intake: IV 1200 Oral 240 Output: Chest Tube Drainage 250 100 Chest Tube Left Lateral 250 100 Chest Urine 400 450 450 Estimated Blood Loss 1000 Other: # Voids 1 - Exam General: The patient is awake and alert, in no distress Eye: there is normal conjunctiva bilaterally. Neck: The neck is supple, there is no JVD. Cardiovascular: Normal S1-S2, no S3-S4, no murmurs. Respiratory: Lungs clear to auscultation bilaterally Gastrointestinal: Abdomen is soft, nontender Musculoskeletal: There is no pedal edema. Neurological:. Speech is normal. Skin: Skin is warm and dry - Labs CBC & Chem 7: 10/16/19 08:52 10/16/19 08:52 Labs: Abnormal Lab Results - Last 24 Hours (Table) 10/16/19 10/16/19 Range/Units 08:52 08:52 RBC 3.10 L (4.30-5.90) m/uL Hgb 10.4 L (13.0-17.5) gm/dL Hct 31.4 L (39.0-53.0) % MCV 101.0 H (80.0-100.0) fL Plt Count 644 H (150-450) k/uL Neutrophils # 8.1 H (1.3-7.7) k/uL Sodium 130 L (137-145) mmol/L Glucose 209 H (74-99) mg/dL Assessment and Plan Assessment: This is a 59-year-old male with no significant past medical history who presented to the ER chest discomfort after sustaining a fall from a 2 steps stool at home approximately a week ago. Patient was evaluated in the ER and ad mitted to the hospital for further management of his medical problems noted below. 1. Fracture of the 6 and 7 rib on the left 2. Large pleural effusion with hemorrhagic debris, most likely secondary to trauma. Status post evacuation in OR by thoracic surgery. 3. DVT prophylaxis with SCD Repeat x-ray in the morning. Anticipate discharge home tomorrow.
[2019-10-16] MEDS ORDERED: DOCUSATE 100 MG CAP PO PRN (16:54)
[2019-10-17] MEDS: oxyCODONE-APAP 5-325MG 1 EACH TAB PO PRN (03:56)
[2019-10-17 04:37] VITALS: RESP 18
[2019-10-17 06:59] LABS: Basophils % (A) 0 %; Eosinophils # (A) 0.3 k/uL (0-0.7); Eosinophils % (A) 4 %; HCT 31.1 % (39.0-53.0); HGB 9.8 gm/dL (13.0-17.5); Hypochromasia Slight; Lymphocytes # (A) 1.6 k/uL (1.0-4.8); Lymphocytes % (A) 21 %; MCH 31.7 pg (25.0-35.0); MCHC 31.5 g/dL (31.0-37.0); MCV 100.8 fL (80.0-100.0); Mean Platelet Volume 7.4; Monocytes # (A) 0.4 k/uL (0-1.0); Monocytes % (A) 5 %; Neutrophils # (A) 5.4 k/uL (1.3-7.7); Neutrophils % (A) 69 %; Platelet Count 592 k/uL (150-450); RBC 3.09 m/uL (4.30-5.90); RDW 13.2 % (11.5-15.5); WBC 7.9 k/uL (3.8-10.6)
[2019-10-17 07:10] LABS: African American GFR (CKD) >90 (>60 ml/min/1.73 sqM); Anion Gap 4 mmol/L; Blood Urea Nitrogen 10 mg/dL (9-20); Calcium 8.6 mg/dL (8.4-10.2); Carbon Dioxide 27 mmol/L (22-30); Chloride 102 mmol/L (98-107); Glucose 96 mg/dL (74-99); Non-African American GFR(CKD) >90 (>60 ml/min/1.73 sqM); Potassium 4.7 mmol/L (3.5-5.1); Sodium 133 mmol/L (137-145)
--- NOTE | 2019-10-17 08:14 | XR ---
EXAMINATION TYPE: XR chest 2V DATE OF EXAM: 10/17/2019 HISTORY: hemothorax. REFERENCE: Previous study dated 10/16/2019. FINDINGS: There is a right shoulder arthroplasty in place. The patient's left pleural drain has been removed. There is marked improved aeration at the left lung base. Some residual airspace disease persists. I suspect a tiny effusion. The heart is not enlarged. IMPRESSION: MARKED IMPROVEMENT IN THE APPEARANCE OF THE LEFT LUNG. I DO NOT SEE EVIDENCE OF PNEUMOTHORAX.
--- NOTE | 2019-10-17 08:50 | P.PN ---
Subjective Progress Note Date: 10/17/19 Principal diagnosis: Left hemothorax. Previous medical history of recent fall with left sixth and seventh rib fractures, hypertension, tobacco dependence with cessation in May 2019, and occasional marijuana use POD #2 left thoracoscopy with evacuation of hemothorax The patient's currently sitting up in a recliner in no acute distress on the cardiac stepdown unit. States pain is well controlled on current medication regimen, denies shortness of breath. Left pleural chest tube was discontinued yesterday, patient states he feels better every day. He is currently on room air. Patient has been ambulatory around the room. No new concerns. Objective - Vital Signs Vital signs: Vital Signs Temp 98.4 F 10/17/19 03:45 Pulse 69 10/17/19 03:45 Resp 18 10/17/19 03:45 BP 122/73 10/17/19 03:45 Pulse Ox 96 10/17/19 03:45 Intake & Output 10/16/19 10/17/19 10/17/19 18:59 06:59 18:59 Intake Total 360 Output Total 450 Balance -90 Weight 92.5 kg Intake: Oral 360 Output: Urine 450 Other: Voiding Method Toilet # Voids 3 - Constitutional General appearance: Present: cooperative, no acute distress - Respiratory Details: Lungs sounds diminished bilaterally. Respirations even, nonlabored. Currently on room air with oxygen saturation 96%. Able to achieve 2500 mL on his incentive spirometry. Strong cough. - Cardiovascular Details: S1, S2 present. Regular rate and rhythm, sinus rhythm on telemetry with heart rate 75 bpm. Palpable peripheral pulses bilaterally. No edema present. - Gastrointestinal Gastrointestinal Comment(s): Abdomen soft, nontender, nondistended. Active bowel sounds present 4 quadrants. Tolerating diet. - Genitourinary Genitourinary Comment(s): Continues to void - Integumentary Integumentary Comment(s): Skin is warm and dry with evidence of good perfusion - Neurologic Neurologic: Present: CNII-XII intact - Musculoskeletal Musculoskeletal: Present: gait normal, strength equal bilaterally - Psychiatric Psychiatric: Present: A&O x's 3, appropriate affect, intact judgment & insight - Allied health notes Allied health notes reviewed: nursing - Labs CBC & Chem 7: 10/17/19 06:31 10/17/19 06:31 Labs: Abnormal Lab Results - Last 24 Hours (Table) 10/16/19 10/16/19 10/17/19 Range/Units 08:52 08:52 06:31 RBC 3.10 L 3.09 L (4.30-5.90) m/uL Hgb 10.4 L 9.8 L (13.0-17.5) gm/dL Hct 31.4 L 31.1 L (39.0-53.0) % MCV 101.0 H 100.8 H (80.0-100.0) fL Plt Count 644 H 592 H (150-450) k/uL Neutrophils # 8.1 H (1.3-7.7) k/uL Sodium 130 L (137-145) mmol/L Glucose 209 H (74-99) mg/dL 10/17/19 Range/Units 06:31 RBC (4.30-5.90) m/uL Hgb (13.0-17.5) gm/dL Hct (39.0-53.0) % MCV (80.0-100.0) fL Plt Count (150-450) k/uL Neutrophils # (1.3-7.7) k/uL Sodium 133 L (137-145) mmol/L Glucose (74-99) mg/dL - Imaging and Cardiology Chest x-ray: report reviewed, image reviewed Assessment and Plan Assessment: 1. Left-sided hemothorax, status post left thoracoscopy with evacuation of hemothorax 2. Recent fall history with sixth and seventh rib fractures 3. History of hypertension, currently on no medication 4. Previous tobacco dependence 5. Occasional marijuana use Plan: 1. Repeat chest x-ray appears stable. 2. Encourage incentive spirometry use 10 times every hour while awake 3. Pain control with current medication regimen 4. Increase activity, ambulate as tolerated. 5. Medical management of other comorbidities per primary care service 6. From cardiothoracic surgery standpoint patient may be discharged to home. Discharge instructions regarding incisional care were placed on discharge plan. Our contact information was given to patient. 7. If patient remains hospitalized we will see on an as-needed basis Time with Patient: Greater than 30
[2019-10-17 09:20] VITALS: BP 142/76; PULSE 78; TEMP 97.4
--- NOTE | 2019-10-17 10:06 | P.DS ---
Providers Date of admission: 10/14/19 16:33 Expected date of discharge: 10/17/19 Attending physician: Mallory Murray MD Consults: 10/14/19 16:33 Consult Physician Urgent Consulting Provider: Kodak Bryan Consult Reason/Comments: Pleural effusion Do you want consulting provider notified?: Yes 10/14/19 16:51 Consult Physician Routine Consulting Provider: Reed Joshi Consult Reason/Comments: pleural effusion Do you want consulting provider notified?: Yes Primary care physician: Shoaib Lan DO Hospital Course: This is a 59-year-old male with no significant past medical history who presented to the ER chest discomfort after sustaining a fall from a 2 steps stool at home approximately a week ago. Patient was evaluated in the ER and admitted to the hospital for further management of his medical problems noted below. 1. Fracture of the 6 and 7 rib on the left 2. Large pleural effusion with hemorrhagic debris, most likely secondary to trauma. Status post evacuation in OR by thoracic surgery. Patient was monitored for 24 hours and repeat chest x-ray showed stable findings. He was cleared by thoracic surgery for discharge home. No pain Patient will be discharged home in a stable condition. For further details about this hospitalization please refer to the electronic chart. Plan - Discharge Summary Discharge Rx Participant: Yes New Discharge Prescriptions: No Action No Known Home Medications Discharge Medication List No Known Home Medications 10/14/19 [History] Follow up Appointment(s)/Referral(s): Shoaib Lan DO [Primary Care Provider] - 1-2 days Activity/Diet/Wound Care/Special Instructions: DISCHARGE INSTRUCTIONS: 1. No driving for 2 weeks, or until physician gives their ok. 2. No lifting, pushing, or pulling more than 10 pounds for 2 weeks. The physician will advise of any restriction changes. 3. Continue pain control per as needed orders. Alternate acetaminophen (Tylenol) and ibuprofen (Motrin/Advil) for pain. 4. Continue with incentive spirometry and splinting until otherwise directed by the physician. 5. Leave chest tube dressing for 48 hours. After that, remove all dressings and shower daily. 6. Routine incision care. No powders, lotions, ointments on incisions. 7. Please call surgeon/[facility] for temp greater than 101 F or purulent drainage from incisions. 8. Smoking cessation counseling and program information provided. For any surgical questions or concerns please do not hesitate to call Shantal [facility] at [phone] or Francisco [facility] at [phone] Discharge Disposition: HOME SELF-CARE
--- NOTE | 2019-10-17 11:53 | P.PN ---
Subjective Progress Note Date: 10/17/19 Principal diagnosis: Left-sided hemothorax secondary to follow with repeat fracture This is a very pleasant 59-year-old gentleman who follows with a primary care physician out of [place]. He has a history of hypertension and hyperlipidemia. He had recently taken a fall from a stepladder onto his left side with his left arm hitting underneath his left chest. He was seen here in the emergency room on 10/07/2019. Chest x-ray revealed a mildly displaced left lateral sixth rib f racture. The patient was given Toradol and pain medications for home. He was also given an incentive spirometer. He was doing fairly well until yesterday he had re-presented to the emergency room with abdominal fullness and bloating and belching. No nausea, vomiting or diarrhea. A computed tomography scan of the abdomen revealed a nondisplaced anterior lateral left seventh rib fracture. There is underlying partially visualized large left pleural effusion. Some hemorrhagic debris may be present in the effusion. The effusion has a mass effect depressing left hemidiaphragm. Ultrasound of the chest revealed a 12.8 cm pocket. We are consulted for the same. The patient is seen on the selective care unit currently resting fairly comfortably in bed. Awake and alert in no acute distress. He is maintaining good O2 saturations in the high 90s on room air. He's been afebrile. Hemodynamically stable. White count 8.0. Hemoglobin 9.3. INR 1.0. Sodium 132. Potassium 4.6. Creatinine 0.71. Arevalo virus not detected. His pain is adequately controlled. He is working well with the incentive spirometer. The patient is seen today 10/16/2019 in follow-up on the selective care unit. He is currently sitting up in a chair at the bedside. Awake and alert in no acute distress. He did undergo a left thoracoscopic with evacuation of hemothorax and chest tube placement yesterday. There was over 4 L of bloody fluid present in the pleural space along with organized thrombus that was evacuated with excellent reexpansion of the lung. Today's chest x-ray shows improved aeration of the left lung base. He is maintaining good O2 saturations in the 90s on room air. He has been afebrile. Hemodynamically stable. White count 10.0. Hemoglobin 10.4. Sodium 130. Potassium 4.5. Creatinine 0.84. He is working well with the incentive spirometer. The patient is seen today 10/17/2019 in follow-up on the selective care unit. He is awake and alert in no acute distress. He's been sitting up in a chair at the bedside. He's been up ambulating with assistance. Maintaining good O2 saturations in the 90s on room air. Follow-up chest x-ray reveals near complete resolution of the left lower lung hemothorax. He continues to work well with the incentive spirometer. He is anxious to go home. Objective - Vital Signs Vital signs: Vital Signs Temp 97.4 F L 10/17/19 09:12 Pulse 78 10/17/19 09:12 Resp 18 10/17/19 09:12 BP 142/76 10/17/19 09:12 Pulse Ox 100 10/17/19 09:12 Intake & Output 10/16/19 10/17/19 10/17/19 18:59 06:59 18:59 Intake Total 360 Output Total 450 Balance -90 Weight 92.5 kg Intake: Oral 360 Output: Urine 450 Other: Voiding Method Toilet # Voids 3 3 - Exam GENERAL EXAM: Alert, pleasant 59-year-old gentleman, on room air, comfortable in no apparent distress. HEAD: Normocephalic. EYES: Normal reaction of pupils, equal size. NOSE: Clear with pink turbinates. THROAT: No erythema or exudates. NECK: No masses, no JVD. CHEST: No chest wall deformity. Left sided chest tube removed LUNGS: Crackles and diminished breath sounds on the left. Right lung clear CVS: S1 and S2 normal with no audible murmur, regular rhythm. ABDOMEN: No hepatosplenomegaly, normal bowel sounds, no guarding or rigidity. SPINE: No scoliosis or deformity SKIN: No rashes CENTRAL NERVOUS SYSTEM: No focal deficits, tone is normal in all 4 extremities. EXTREMITIES: There is no peripheral edema. No clubbing, no cyanosis. Peripheral pulses are intact. - Labs CBC & Chem 7: 10/17/19 06:31 10/17/19 06:31 Labs: Abnormal Lab Results - Last 24 Hours (Table) 10/17/19 10/17/19 Range/Units 06:31 06:31 RBC 3.09 L (4.30-5.90) m/uL Hgb 9.8 L (13.0-17.5) gm/dL Hct 31.1 L (39.0-53.0) % MCV 100.8 H (80.0-100.0) fL Plt Count 592 H (150-450) k/uL Sodium 133 L (137-145) mmol/L Assessment and Plan Assessment: 1 Large left pleural effusion with hemorrhagic debris and anterior lateral left seventh rib fracture, nondisplaced secondary to trauma following a fall on 10/07/2019. Status post left thoracoscopic with evacuation of fluid and left- sided chest tube placement and subsequent removal. 2 Abdominal discomfort and bloating possibly secondary to trauma and narcotic use 3 Mild hepatosplenomegaly 4 2.5 cm area of focal fluid within the left side of the pelvis just behind the deep inguinal ring possibly reactive secondary to injury 5 History of hypertension 6 History of hyperlipidemia 7 History of chronic tobacco dependence however quit in May 2019 8 Occasional marijuana use Plan: The patient was seen and evaluated by Dr. Nunes Chest x-ray reviewed, chest tube removed Cleared for discharge from the pulmonary standpoint Follow-up in our office in 1-2 weeks' time I, the cosigning physician, performed a history & physical examination of the patient. Lungs sounds with crackles and diminished in the left lung, right lung clear. Maintaining good O2 saturations in the 90s on room air. I discussed the assessment and plan of care with my nurse practitioner, Shobha Ya. I attest to the above note as dictated by her.
== END 2019-10-17 11:11 | disposition home or self-care (01) | DRG 164 ==
LOC: EC 13:03 → 3SCARD 16:33 → 4SSUR 10-16 23:46 → 3SCARD 10-16 23:50
PROVIDERS: ADMIT Internal Medicine; ATTEND Internal Medicine
PROC: 0BCP4ZZ Extirpation of Matter from Left Pleura, Percutaneous Endoscopic Approach (ICD-10-PCS; principal; 2019-10-15 11:20)
PROC: 0BC Respiratory System, Extirpation (ICD-10-PCS; principal; 2019-10-15 11:20)
DX: S27.1XXA Traumatic hemothorax, initial encounter (principal); S22.42XA Multiple fractures of ribs, left side, initial encounter for closed fracture; E78.5 Hyperlipidemia, unspecified; I10 Essential (primary) hypertension; W11.XXXA Fall on and from ladder, initial encounter; Y92.009 Unspecified place in unspecified non-institutional (private) residence as the place of occurrence of the external cause; Z87.891 Personal history of nicotine dependence; Z11.59 Encounter for screening for other viral diseases; R16.2 Hepatomegaly with splenomegaly, not elsewhere classified
CPT/HCPCS: 36415; 71045; 71046; 74177; 76604; 80048; 80053; 83735; 85025; 85610; 85730; 86850; 86900; 86901; 88304; 94760; 96360; 99285

== ENCOUNTER → 2019-11-15 | Outpatient (CLI) | payer BC ==
--- NOTE | 2019-11-17 10:17 | P.ARTDOP ---
Arterial Doppler LOWER EXTREMITY ARTERIAL DOPPLER: DATE OF SERVICE: 11/15/2019 Reason for study: Right foot pain. Doppler waveforms: Multiphasic bilaterally throughout. Pulse volume recording: []. Pressure gradients: Only at the right foot. Ankle-brachial indices: Greater than 1 bilaterally. Toe brachial indices: 0.37 on the right, 0.96 on the left Impression: Normal study except some decrease in waveforms and pressure at the right great toe. Findings most likely related to vasospastic phenomenon. Significant distal disease less likely. Clinical correlation recommended..
== END | disposition home or self-care (01) ==
LOC: RADUSWWP 14:14
PROVIDERS: ATTEND Physical Medicine & Rehabilitation
DX: R22.41 Localized swelling, mass and lump, right lower limb (principal); M79.604 Pain in right leg
CPT/HCPCS: 93922

== ENCOUNTER → 2020-03-06 | Outpatient (CLI) | payer BC ==
--- NOTE | 2020-03-06 21:38 | MR ---
MR brain and lumbar spine without contrast HISTORY: M 79.2, M 54.17 Multiplanar multisequence imaging through the brain and lumbar spine Correlation CT abdomen pelvis 10/14/2019 Brain MRI: There is no restricted diffusion. There are normal vascular flow voids present. There is n o hemorrhage or hydrocephalus. Brain signal is maintained. Inflammatory changes present within the et hmoid air cells, maxillary sinuses. The corpus callosum, pituitary, cervical medullary junction, cere bellopontine angles are normal. Orbits show symmetric appearance. IMPRESSION: Sinus disease. Normal brain MRI. Lumbar MRI: Lumbar vertebral bodies show preserved height, alignment, there is multilevel spondylosis with endplate discogenic marrow signal change. Loss of disc height signal is present at intervertebr al levels. The conus is at L1 shows an unremarkable appearance. There is no evident spinal stenosis. L5-S1: There is facet arthropathy change. Hypertrophic ligamentum flavum is noted causing some minima l posterior lateral mass effect on the thecal sac greater on the left. Vacuum phenomenon present at t he disc space. Circumferential extension of endplate disc complex results in foraminal encroachment g reater on the left than on the right. Posterior disc bulge contacts anterior thecal sac. L4-5: Posterior broad-based disc bulge causes anterior mass effect on the thecal sac and extends circ umferentially to cause some foraminal encroachment greater on the left than on the right. There is an terior mass effect on the thecal sac. Facet arthropathy change with hypertrophy ligamentum flavum cau ses posterior lateral mass effect on the thecal sac. L3-4: Posterior broad-based disc bulge causes anterior mass effect on the thecal sac. No significant foraminal encroachment. L2-3: Posterior broad-based disc bulge causes mild anterior mass effect on the thecal sac. No signifi cant foraminal encroachment. L1-2: Minimal disc bulge causes only slight anterior mass effect on the thecal sac. IMPRESSION: Degenerative disc disease and facet arthropathy. Multilevel foraminal encroachment.
== END | disposition home or self-care (01) ==
LOC: RADMRIMAIN 17:47
PROVIDERS: ATTEND Psychiatry & Neurology Neurology
DX: M51.16 Intervertebral disc disorders with radiculopathy, lumbar region (principal); M47.26 Other spondylosis with radiculopathy, lumbar region; M79.2 Neuralgia and neuritis, unspecified
CPT/HCPCS: 70551; 72148

== ENCOUNTER → 2020-09-21 | Outpatient (CLI) | payer BC ==
--- NOTE | 2020-09-25 11:24 | CT ---
EXAMINATION TYPE: CT shoulder RT wo con DATE OF EXAM: 09/21/2020 COMPARISON: Outside right shoulder x-ray July 31, 2020 and older x-rays HISTORY: Right shoulder pain, evaluate for loosening. CT DLP: 524.4 mGycm Automated exposure control for dose reduction was used. FINDINGS: [place] osseous structures are demineralized. Metallic hardware from right shoulder hemiarthroplasty r edemonstrated causing streak artifact. Persistent nonhealed fracture deformity through the right prox imal humerus. Degree of distraction or separation not significantly changed from most recent x-ray. N o suspicious surrounding the lucency to suggest loosening or infection. The osseous glenoid component inferior lucency with sclerosis or prosthesis has similar appearance to the most recent x-ray. No suspicious focal lucency. Position of prosthesis stable. Stable mild to moderate narrowing at acromioclavicular joint. Scaphoid intact. Visualized ribs are in tact. Muscle bulk right shoulder maintained. Visualized right lung is clear. IMPRESSION: Prosthesis position stable. No suspicious surrounding lucency noted.
== END | disposition home or self-care (01) ==
LOC: RADCTMAIN 13:00
PROVIDERS: ATTEND Orthopaedic Surgery
DX: Z96.611 Presence of right artificial shoulder joint (principal)